=== PATIENT | female | born 1960 | race Hispanic/Latino ===

== ENCOUNTER 2021-06-24 16:58 | Emergency (ER) | payer SELFPAY ==
[2021-06-24] MEDS ORDERED: dexAMETHasone 10 MG/ML VIAL ONE (17:57)
[2021-06-24] MEDS ORDERED: DIPHENHYDRAMINE 50 MG/ML VIAL ONE (17:57)
[2021-06-24] MEDS ORDERED: METOCLOPRAMIDE 10 MG/2mL INJ ONE (17:57)
[2021-06-24] MEDS ORDERED: ONDANSETRON 4 MG/2 ML VIAL ONE (17:58)
[2021-06-24] MEDS ORDERED: MECLIZINE HCL 12.5 MG TAB ONE (17:58)
[2021-06-24] MEDS ORDERED: NA CHLORIDE 0.9% 1,000 ML ONE (17:58)
[2021-06-24 18:16] LABS: Absolute Lymphocytes (CBC) 2.8 K/uL (0.7-4.9); Basophils % 0.8 % (0-1.3); Hematocrit 39.6 % (36.0-45.0); Lymphocytes % 38.1 % (15.3-44.8); MPV 8.7 fL (7.6-11.3); RBC Red Blood Cell Count 4.79 M/uL (3.86-4.86)
[2021-06-24 18:17] LABS: Protime INR 0.97
--- NOTE | 2021-06-24 18:17 | RAD REPORT ---
EXAM DESCRIPTION: CT - Head Brain Wo Cont - 06/24/2021 6:03 pm CLINICAL HISTORY: Dizziness;Headache Headache, drowsiness COMPARISON: No comparisons TECHNIQUE: All CT scans are performed using dose optimization technique as appropriate and may inclu de automated exposure control or mA/KV adjustment according to patient size. FINDINGS: No intracranial hemorrhage, hydrocephalus or extra-axial fluid collection.No areas of brai n edema or evidence of midline shift. Prominent right maxillary mucous retention cyst versus polyp. The paranasal sinuses and mastoids are otherwise clear. The calvarium is intact. IMPRESSION: No acute intracranial abnormality.
[2021-06-24 18:34] LABS: ALT/SGPT 66 U/L (12-78); AST/SGOT 27 U/L (15-37); Albumin 4.2 g/dL (3.4-5.0); Alkaline Phosphatase 74 U/L (45-117); BUN Blood Urea Nitrogen 13 mg/dL (7-18); Bicarbonate 27 mmol/L (21-32); Bilirubin Direct < 0.1 mg/dL (0-0.2); Bilirubin Total 0.4 mg/dL (0.2-1.0); Glucose Level 97 mg/dL (74-106); Magnesium 2.4 mg/dL (1.8-2.4); Potassium 4.2 mmol/L (3.5-5.1); Protein, Total 8.2 g/dL (6.4-8.2); Sodium Level 144 mmol/L (136-145); Troponin (Emerg Dept Use Only) < 0.02 ng/mL (0.0-0.045)
--- NOTE | 2021-06-24 19:14 | EDPHYS ---
Physician Documentation [facility] Name: Hollie Warner Age: 60 yrs Sex: Female : 1960 Arrival Date: 06/24/2021 Time: 17:00 Bed 8 Private MD: ED Physician Nathaniel Gilbert HPI: 06/24 17:45 This 60 yrs old Female presents to ER via Wheelchair with complaints of cp Headache, Dizziness. 17:45 The patient complains of pain to the top of head. cp 17:45 The patient describes the headache as aching, constant. Onset: The symptoms/episode cp began/occurred 1 week(s) ago. Associated signs and symptoms: Pertinent positives: dizziness, nausea, blurred vision, Pertinent negatives: altered mental status, fever, neck stiffness, sinus congestion, sinus tenderness, vomiting, weakness. Severity of symptoms: in the emergency department the pain a " 8" out of "10". Headache History: The patient has had previous headaches and this one is more severe than previous episodes. Historical: - Allergies: 17:14 No Known Allergies; vg1 - Home Meds: 17:14 atorvastatin oral [Active]; Fish Oil oral [Active]; vg1 - PMHx: 17:14 Hypercholesterolemia; vg1 - PSHx: 17:14 Hysterectomy; section; vg1 - Immunization history:: Adult Immunizations Client reports receiving the 2nd dose of the Covid vaccine. - Social history:: Smoking status: Patient denies any tobacco usage or history of. ROS: 17:50 Constitutional: Negative for body aches, chills, fever, poor PO intake. cp 17:50 ENT: Negative for drainage from ear(s), ear pain, sore throat, difficulty swallowing, cp difficulty handling secretions. 17:50 Respiratory: Negative for cough, shortness of breath, wheezing. 17:50 Abdomen/GI: Positive for nausea, Negative for abdominal pain, vomiting, diarrhea. 17:50 Neuro: Positive for dizziness, headache, Negative for altered mental status, numbness, weakness. 17:50 All other systems are negative. Exam: 17:55 Constitutional: The patient appears in no acute distress, alert, awake, cp non-diaphoretic, non-toxic, well developed, well nourished. 17:55 Head/Face: Normocephalic, atraumatic. cp 17:55 Eyes: Periorbital structures: appear normal, Pupils: equal, round, and reactive to light and accomodation, Extraocular movements: intact throughout, Conjunctiva: normal, no exudate, no injection, Sclera: no appreciated abnormality, Lids and lashes: 17:55 ENT: External ear(s): are unremarkable, Ear canal(s): are normal, clear, TM's: bulging, is not appreciated, bilaterally, dullness, bilaterally, erythema, is not appreciated, bilaterally, Nose: is normal, Mouth: Lips: moist, Oral mucosa: moist, Posterior pharynx: Airway: no evidence of obstruction, patent. 17:55 Neck: ROM/movement: is normal, is supple, without pain, no range of motions limitations, no meningismus. 17:55 Chest/axilla: Inspection: normal. 17:55 Cardiovascular: Rate: normal, Rhythm: regular. 17:55 Respiratory: the patient does not display signs of respiratory distress, Respirations: normal, no use of accessory muscles, no retractions, labored breathing, is not present, Breath sounds: are clear throughout, no decreased breath sounds, no stridor, no wheezing. 17:55 Abdomen/GI: Exam negative for discomfort, distension, guarding, Inspection: abdomen appears normal. 17:55 Back: pain, is absent, ROM is normal. 17:55 Neuro: Orientation: to person, place \\T\\ time. Mentation: is normal, Cerebellar function: is grossly normal, Motor: moves all fours, strength is normal, Sensation: is normal. 18:43 ECG was reviewed by the Attending Physician. cp Vital Signs: 17:06 BP 129 / 71; Pulse 63; Resp 16; Temp 98.4; Pulse Ox 98% ; Weight 66 kg; Height 4 ft. 11 vg1 in. (149.86 cm); Pain 8/10; 17:06 Body Mass Index 29.39 (66.00 kg, 149.86 cm) vg1 MDM: 17:36 Patient medically screened. cp 18:00 Differential diagnosis: cluster headache, migraine, neoplasm, sinusitis, subarachnoid cp bleed, subdural hematoma, tension headache. 19:12 Data reviewed: vital signs, nurses notes, lab test result(s), radiologic studies, CT cp scan. 19:12 Counseling: I had a detailed discussion with the patient and/or guardian regarding: the cp historical points, exam findings, and any diagnostic results supporting the discharge/admit diagnosis, lab results, radiology results, the need for outpatient follow up, a family practitioner, to return to the emergency department if symptoms worsen or persist or if there are any questions or concerns that arise at home. Response to treatment: the patient's symptoms have markedly improved after treatment, VSS. Headache and nausea markedly improved. Will discharge to home for continued monitoring. 06/24 17:41 Order name: Basic Metabolic Panel; Complete Time: 18:39 cp 06/24 18:39 Interpretation: Normal except: CL 108; GFR 74. cp 06/24 17:41 Order name: CBC with Diff; Complete Time: 18:33 cp 06/24 18:40 Interpretation: Reviewed. cp 06/24 17:41 Order name: LFT's; Complete Time: 18:39 cp 06/24 17:41 Order name: Magnesium; Complete Time: 18:39 cp 06/24 17:41 Order name: PT-INR; Complete Time: 18:33 cp 06/24 17:41 Order name: Troponin (emerg Dept Use Only); Complete Time: 18:39 cp 06/24 17:41 Order name: CT Head Brain wo Cont; Complete Time: 18:33 cp 06/24 18:49 Order name: SARS-COV-2 RT PCR EDMS 06/24 17:41 Order name: IV; Complete Time: 18:05 cp 06/24 17:41 Order name: EKG; Complete Time: 17:42 cp 06/24 17:41 Order name: Cardiac monitoring; Complete Time: 18:04 cp 06/24 17:41 Order name: EKG - Nurse/Tech; Complete Time: 18:45 cp 06/24 17:41 Order name: Labs collected and sent; Complete Time: 18:05 cp 06/24 17:41 Order name: O2 Per Protocol; Complete Time: 18:05 cp 06/24 17:41 Order name: O2 Sat Monitoring; Complete Time: 18:04 cp EC:43 Rate is 63 beats/min. Rhythm is regular. NH interval is normal. QRS interval is normal. cp QT interval is normal. T waves are Inverted in lead aVR. Interpreted by me. Reviewed by me. Administered Medications: 18:15 Drug: NS 0.9% 1000 ml Route: IV; Rate: 1000 ml/hr; Site: right antecubital; as6 19:39 Follow up: IV Status: Completed infusion; IV Intake: 1000ml em 18:15 Drug: Reglan (metoCLOPramide) 10 mg Route: IVP; Site: right antecubital; as6 19:38 Follow up: Response: No adverse reaction em 18:15 Drug: Benadryl (diphenhydrAMINE) 25 mg Route: IVP; Site: right antecubital; as6 19:38 Follow up: Response: No adverse reaction em 18:15 Drug: Zofran (Ondansetron) 4 mg Route: IVP; Site: right antecubital; as6 19:39 Follow up: Response: No adverse reaction em 18:15 Drug: Decadron - Dexamethasone 10 mg Route: IVP; Site: right antecubital; as6 19:39 Follow up: Response: No adverse reaction em 18:15 Drug: Meclizine 25 mg Route: PO; as6 19:39 Follow up: Response: No adverse reaction; Marked relief of symptoms em 19:32 Drug: Ketorolac 15 mg Route: IVP; Site: right antecubital; em 19:39 Follow up: Response: Medication administered at discharge. em Disposition: 19:20 Chart complete. 06/25 07:53 Co-signature as Attending Physician, Nathaniel Gilbert MD I agree with the assessment and rn plan of care. Attestation: The patient's history, exam findings, diagnostics, and a summary of any interventions or procedures was reviewed in detail with Keanu MAGDALENO. Disposition Summary: 06/24/21 19:13 Discharge Ordered Location: Home cp Problem: new cp Symptoms: have improved cp Condition: Stable cp Diagnosis - Headache cp - Dizziness and giddiness cp Followup: cp - With: Private Physician - When: 2 - 3 days - Reason: Recheck today's complaints Discharge Instructions: - Discharge Summary Sheet cp - General Headache Without Cause cp Forms: - Medication Reconciliation Form cp - Thank You Letter cp - Antibiotic Education cp - Prescription Opioid Use cp Prescriptions: - Naprosyn 500 mg Oral Tablet - take 1 tablet by ORAL route 2 times per day take with food; 20 tablet; Refills: cp 0, Product Selection Permitted - promethazine 25 mg Oral Tablet - take 1 tablet by ORAL route every 6 hours As needed; 20 tablet; Refills: 0, cp Product Selection Permitted - Meclizine 25 mg Oral Tablet - take 1 tablet by ORAL route every 8 hours As needed; 30 tablet; Refills: 0, cp Product Selection Permitted Signatures: Dispatcher [employer] Joe Mon, RN RN Nathaniel Perez MD MD rn Page, Corey, PA PA cp Garcia, Victoria, RN RN vg1 Ramesh Tomas RN RN as6 Corrections: (The following items were deleted from the chart) 06/24 18:49 17:42 CORONAVIRUS+MR.LAB.BRZ ordered. EDLA EDLA
--- NOTE | 2021-06-24 19:14 | ER ---
Nurse's Notes [facility] Name: Hollie Warner Age: 60 yrs Sex: Female : 1960 Arrival Date: 06/24/2021 Time: 17:00 Bed 8 Private MD: Diagnosis: Headache;Dizziness and giddiness Presentation: 06/24 17:06 Chief complaint: Patient states: For about a week pt has been feeling dizzy with a vg1 headache. At times feels nauseous and JAMI ear itchiness. States top of head is where most of pain is and 'some blurred vision'. Denies any injury/falls to head. Coronavirus screen: Vaccine status: Patient reports receiving the 2nd dose of the covid vaccine. Ebola Screen: Patient negative for fever greater than or equal to 101.5 degrees Fahrenheit, and additional compatible Ebola Virus Disease symptoms. Initial Sepsis Screen: Does the patient meet any 2 criteria? No. Patient's initial sepsis screen is negative. Does the patient have a suspected source of infection? No. Patient's initial sepsis screen is negative. Risk Assessment: Do you want to hurt yourself or someone else? Patient reports no desire to harm self or others. Onset of symptoms was June 17, 2021. 17:06 Method Of Arrival: Wheelchair vg1 17:06 Acuity: MATILDE 3 vg1 Triage Assessment: 17:14 Headache History: The patient has had previous headaches and this one is more severe vg1 than previous episodes. General: Appears in no apparent distress. uncomfortable, Behavior is calm, cooperative. Pain: Complains of pain in head Pain currently is 8 out of 10 on a pain scale. Pain began about a week ago Also complains of nausea. Neuro: Level of Consciousness is awake, alert, obeys commands, Oriented to person, place, time, situation. Historical: - Allergies: 17:14 No Known Allergies; vg1 - Home Meds: 17:14 atorvastatin oral [Active]; Fish Oil oral [Active]; vg1 - PMHx: 17:14 Hypercholesterolemia; vg1 - PSHx: 17:14 Hysterectomy; section; vg1 - Immunization history:: Adult Immunizations Client reports receiving the 2nd dose of the Covid vaccine. - Social history:: Smoking status: Patient denies any tobacco usage or history of. Screenin:24 Abuse screen: Denies threats or abuse. Nutritional screening: No deficits noted. as6 Tuberculosis screening: No symptoms or risk factors identified. Fall Risk None identified. Assessment: 17:21 General: Appears in no apparent distress. comfortable, Behavior is calm, cooperative. as6 Pain: Complains of pain in headache. Neuro: Level of Consciousness is awake, alert, obeys commands, Oriented to person, place, time, situation, Reports dizziness, headache. Cardiovascular: Capillary refill < 3 seconds Patient's skin is warm and dry. Respiratory: Airway is patent Trachea midline Respiratory effort is even, unlabored, Respiratory pattern is regular, symmetrical, Denies shortness of breath. Derm: Skin is intact, is healthy with good turgor, Skin is dry, Skin is pink, warm \T\ dry. Skin temperature is warm. Musculoskeletal: Reports weakness in generalized weakness. Vital Signs: 17:06 BP 129 / 71; Pulse 63; Resp 16; Temp 98.4; Pulse Ox 98% ; Weight 66 kg; Height 4 ft. 11 vg1 in. (149.86 cm); Pain 8/10; 17:06 Body Mass Index 29.39 (66.00 kg, 149.86 cm) vg1 ED Course: 17:00 Patient arrived in ED. mr 17:14 Triage completed. vg1 17:14 Arm band placed on. vg1 17:19 Ramesh Tomas, RN is Primary Nurse. as6 17:24 Patient has correct armband on for positive identification. Bed in low position. Call as6 light in reach. Side rails up X2. Adult w/ patient. Pulse ox on. NIBP on. Warm blanket given. 17:25 Keanu Gupta PA is PHCP. cp 17:25 Nathaniel Gilbert MD is Attending Physician. cp 18:02 CT Head Brain wo Cont In Process Unspecified. EDMS 18:05 Inserted saline lock: 18 gauge in right antecubital area, using aseptic technique. as6 Blood collected. Administered Medications: 18:15 Drug: NS 0.9% 1000 ml Route: IV; Rate: 1000 ml/hr; Site: right antecubital; as6 19:39 Follow up: IV Status: Completed infusion; IV Intake: 1000ml em 18:15 Drug: Reglan (metoCLOPramide) 10 mg Route: IVP; Site: right antecubital; as6 19:38 Follow up: Response: No adverse reaction em 18:15 Drug: Benadryl (diphenhydrAMINE) 25 mg Route: IVP; Site: right antecubital; as6 19:38 Follow up: Response: No adverse reaction em 18:15 Drug: Zofran (Ondansetron) 4 mg Route: IVP; Site: right antecubital; as6 19:39 Follow up: Response: No adverse reaction em 18:15 Drug: Decadron - Dexamethasone 10 mg Route: IVP; Site: right antecubital; as6 19:39 Follow up: Response: No adverse reaction em 18:15 Drug: Meclizine 25 mg Route: PO; as6 19:39 Follow up: Response: No adverse reaction; Marked relief of symptoms em 19:32 Drug: Ketorolac 15 mg Route: IVP; Site: right antecubital; em 19:39 Follow up: Response: Medication administered at discharge. em Intake: 19:39 IV: 1000ml; Total: 1000ml. em Outcome: 19:13 Discharge ordered by . kanwal 19:51 Patient left the ED. em Signatures: Dispatcher [employer] Chiquis Medrano Edgar RN RN Keanu Mayfield PA PA cp Garcia, Victoria, RN RN vg1 Ramesh Tomas RN RN as6
[2021-06-24] MEDS ORDERED: KETOROLAC 30 MG/ML INJ ONE (19:27)
[2021-06-24 20:12] VITALS: BP 129/71; TEMP 98.4; O2SAT 98
--- NOTE | 2021-06-28 08:15 | EKG ---
Test Date: 2021-06-24 Test Time: 18:39:07 [place] Ironer: MEASUREMENT RESULTS: Intervals: Rate: 63 ND: 188 QRSD: 86 QT: 442 QTc: 452 [place]: P: 39 ND: 188 QRS: 4 T: 44 INTERPRETIVE STATEMENTS: Normal sinus rhythm Low voltage QRS Borderline ECG No previous ECG available for comparison Electronically Signed On 06-28-21 08:04:41 [employer] HELPER by Jonathan Lewis
== END 2021-06-24 19:51 | disposition home or self-care (01) ==
LOC: ER 16:58
DX: R51.9 Headache, unspecified (principal); R42 Dizziness and giddiness; E78.00 Pure hypercholesterolemia, unspecified; Z20.822 Contact with and (suspected) exposure to COVID-19
CPT/HCPCS: 36415; 70450; 80048; 80076; 83735; 84484; 85025; 85610; 93005; 96361; 96374; 96375; 99284; J1100; J1200; J2405; J2765; J7030; U0003